=== PATIENT | female | born 1980 | race Asian ===

== ENCOUNTER 2018-10-31 08:50 | Outpatient (CLI) | payer BC ==
--- NOTE | 2018-10-31 10:19 | ULT ---
Exam: Pelvic ultrasound HISTORY: Evaluate resolution of right ovarian cyst and evaluate size of endometrial polyp. COMPARISON: None available. TECHNIQUE: Multiple grayscale and color Doppler images were obtained in a transabdominal and transvag inal pelvic ultrasound. Spectral analysis of the Doppler waveforms of the ovaries were performed. FINDINGS: CERVIX: Nabothian cysts are visualized. UTERUS: Uterus is retroverted. There are hypoechoic masslike structure seen at the posterior aspect o f the body of the uterus bilaterally largest on the right measuring approximately 3 cm which may represent small exophytic uterine fibroids. ENDOMETRIAL STRIPE: 6 mm which is within normal limits for a normal menstruating female patient. No f luid or fluid collection is seen in the endometrial canal. No mass is appreciated within the endometrial canal. Trace free fluid is present. RIGHT OVARY: Normal flow, without focal mass. Peripheral follicles are seen. LEFT OVARY:Normal flow, without focal mass. Peripheral follicles are seen. IMPRESSION: 1. Hypoechoic areas posterior aspect of the body of the uterus largest measuring 3 cm which may repre sent exophytic uterine fibroids. 2. Endometrial stripe is normal in thickness for a normal demonstrating female patient measuring 6 mm . No fluid is seen in the endometrial canal, and there are no findings to suggest a mass. Provided history is endometrial polyp, and an MRI pelvis may be helpful for further evaluation. 3. Normal appearing bilateral ovaries with peripheral follicles seen.
== END 2018-10-31 08:51 | disposition home or self-care (01) ==
LOC: SCSULT 08:50
PROVIDERS: ATTEND Family Medicine
DX: N83.201 Unspecified ovarian cyst, right side (principal); N84.0 Polyp of corpus uteri
CPT/HCPCS: 76856